=== PATIENT | female | born 1945 | race American Indian/Alaskan Native ===

== ENCOUNTER 2022-03-21 10:33 | Outpatient (CLI) | payer MEDICARE ==
--- NOTE | 2022-03-23 09:27 | Mammography Report ---
DIGITAL SCREENING MAMMOGRAM WITH CAD, 03/21/2022 CLINICAL INFORMATION / INDICATION: Routine screening mammography. SCREENING MAMMO Z12.31 TECHNIQUE: Digital bilateral 2D mammography was obtained in the craniocaudal and mediolateral obliqu e projections. This examination was interpreted with the benefit of Computer-Aided Detection analysis . COMPARISON: 09/04/2016 FINDINGS: Breast Density: The breasts are almost entirely fatty. No dominant mass, suspicious calcifications, or architectural distortion in either breast. There are stable bilateral calcifications. IMPRESSION: No mammographic evidence of malignancy. Follow up recommendation: Routine yearly screening mammogram. BI-RADS Category 2: BENIGN. A "normal" or negative report should not discourage follow up or biopsy of a clinically significant f inding. A written summary of these findings will be mailed to the patient. The patient will be entered into a mammography reporting system which will generate a reminder letter for the patient's next appointmen t at the appropriate interval. The [employer] recommends yearly mammograms starting at age 40 and continuing as l richa as a woman is in good health. Breast MRI is recommended for women with an approximate 20-25% or greater lifetime risk of breast cancer, including women with a strong family history of breast or ova toya cancer or who have been treated for Hodgkin's disease. Signer Name: Jack Faustin MD Signed: 03/23/2022 9:23 AM Workstation Name: [id number]
== END 2022-03-21 10:34 | disposition home or self-care (01) ==
LOC: SPVWC 10:33
PROVIDERS: ATTEND Internal Medicine
DX: Z12.31 Encounter for screening mammogram for malignant neoplasm of breast (principal)
CPT/HCPCS: 77067